=== PATIENT | male | born 1985 | race Two or more races ===

== ENCOUNTER 2017-04-29 18:22 | Emergency (ER) | payer OTHER ==
[2017-04-29 21:05] LABS: CHLAMYDIA TRACH PCR NOT DETECTED (NOT DETEC); GC PCR NOT DETECTED (NOT DETECT); SOURCE: MALE URINE
== END 2017-04-29 19:19 | disposition home or self-care (01) ==
LOC: ER 18:22
PROVIDERS: Physician Assistant
DX: N45.1 Epididymitis (principal); F17.200 Nicotine dependence, unspecified, uncomplicated
CPT/HCPCS: 87491; 87591; 99284